=== PATIENT | male | born 1950 | race Caucasian/White ===

== ENCOUNTER → 2023-03-03 14:10 | Outpatient (BNVA) | payer OTHER, SELFPAY | PROVIDERS: Visit Provider Urology ==

== ENCOUNTER 2023-05-01 14:31 | Outpatient (REF) | payer OTHER, SELFPAY ==
--- NOTE | ~2023-05-01 | XR_ITS ---
EXAMINATION: XR cervical spine 4V CLINICAL INFORMATION: Dizziness COMPARISON: Cervical spine radiographs 03/06/2008 TECHNIQUE: 5 views of the cervical spine were obtained. FINDINGS: The cervical spine is visualized to the level of C6-C7 on the lateral view. Loss of the usual cervical spine lordosis which may be due to positioning or muscle spasm. No instability on flexion extension views. Status post C5-C7 discectomy and anterior spinal fusion. No hardware fracture or complication. There is osseous fusion across the vertebral bodies at the fused levels Vertebral body heights are otherwise maintained. Mild degenerative disc disease at C3-C4 and C4-C5, manifested by disc space height with multilevel moderate facet arthropathy.. No prevertebral soft tissue swelling. XR/XR cervical spine 4V IMPRESSION: 1. Status post C5-C7 discectomy and anterior spinal fusion. No hardware failure or complication. There is osseous fusion across the vertebral bodies at the fused levels. 2. Mild spondylosis of the cervical spine, as above detailed. 3. Loss of usual cervical spine lordosis which may be due to positioning or muscle spasm.
== END 2023-05-01 14:32 | disposition home or self-care (01) ==
LOC: HO.HOSX 14:31
PROVIDERS: Visit Provider Physician Assistant
DX: R42 Dizziness and giddiness (principal); R20.0 Anesthesia of skin; R51.9 Headache, unspecified
CPT/HCPCS: 72050

== ENCOUNTER 2023-05-22 15:19 | Outpatient (AMB) | payer OTHER, SELFPAY ==
--- NOTE | 2023-05-22 16:08 | A.SPINEOV_ITS ---
Intake Intake Visit Reasons: 3 weeks f/up Intake Note: Mr. Mark is here today for his 3 wk f/u. Allergies codeine [Codeine] Allergy (Mild, Verified 03/03/23 14:27) UNKNOWN oxycodone [Oxycodone] Adverse Reaction (Mild, Verified 03/03/23 14:27) INCREASED SYMPTOMS, WORSE PAIN Assessment & Plan Assessment & Plan (1) Dizziness: Code(s): R42 - Dizziness and giddiness Plan Mr Mark is here to see us today to discuss his MRA/MRI results in the setting of dizziness. As listed in my previous note, he had a previous anterior cervical fusion done for myelopathy years ago. He was in a dentist chair and after having some work done noticed dizziness which was affected by head position. He ultimately underwent a cervical MRI showing stenosis at C4-5 which was the reason he was sent to us. Although he has some baseline myelopathic physical exam findings, he has absolutely no complaints of cervical myelopathy symptoms in the sense that he does not have new tingling numbness weakness issues that have changed since he was starting with this dizziness. His MRI/MRA today shows no significant stenosis or intracranial findings that would explain his dizziness. His left vertebral artery was incompletely visualized either due to artifact or possibly narrowing so the radiologist recommended a CTA of the neck to evaluate this. I will order this test to be thorough in make sure we are not missing something as this could explain dizziness if that area is blocked. In the end, I do not think were dealing with a myelopathy here, however I will review his images with Dr. Chino and get back to the patient after the CTA is completed. Total amount of time spent in this visit was 20 minutes in discussion of symptoms, head and neck MRA imaging results and subsequent plan of care Tomy Chino MD,PhD [facility] Coding Level of Care Code Est Pt Level 3 (76704) Diagnoses Dizziness R42
== END 2023-05-22 16:35 | disposition home or self-care (01) ==
PROVIDERS: PCP Internal Medicine; Visit Provider Physician Assistant
DX: R42 Dizziness and giddiness (principal)
CPT/HCPCS: 99213

== ENCOUNTER → 2023-05-22 15:19 | Outpatient (BNVA) | payer OTHER, SELFPAY | PROVIDERS: PCP Internal Medicine; Visit Provider Physician Assistant ==

== ENCOUNTER 2025-07-25 14:56 | Outpatient (AMB) | payer MEDICARE, SELFPAY ==
--- NOTE | 2025-07-25 14:55 | A.OFFVIS_ITS ---
Intake Visit Reasons: Lump in Testicle (seen 2022) Intake Note: Patient is present for lump in testicle last seen 2022 Antibiotic Allergy: None Blood Thinner: None Book Sewing Machine Operator Required: No Accompanied by: Self / Same As Patient Allergies codeine (Codeine) Allergy (Mild, Verified 07/25/25 14:56) UNKNOWN oxycodone (Oxycodone) Adverse Reaction (Mild, Verified 07/25/25 14:56) INCREASED SYMPTOMS, WORSE PAIN HPI Comments Details: Micha is a very pleasant male. 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 Would like to be followed up in 12 month Epididymitis Longstanding Thinks it was related to post trauma when had been in hospital with ventilator in ICU and Jhaveri catheter in place a number of years ago Initially had presented with thickening on left cord Orchiectomy performed by [facility]rology [facility] Imaging - 12/18 thickening of right cord and epididymal head [facility] Surgical History (Updated 03/03/23 @ 14:35 by Nicky Kimball Hernán) History of removal of testicle Review of Systems Const Denies chills and Denies fever(s) Card Reports no additional complaints and Denies syncope Resp Denies cough GI Denies abdominal pain and Denies heartburn Reports as per HPI and Denies change in libido Neuro Denies syncope Psych Denies change in libido Endo Denies change in libido Physical Exam Const General: cooperative, healthy appearing, comfortable and no acute distress Orientation/consciousness: patient oriented x3 HEENT Face and sinus: Yes normal facial exam Mouth: moist mucous membranes Neck Neck: Yes normal visual inspection, Yes full ROM and Yes trachea midline Chest Chest palpation & inspection: normal inspection of the chest Resp Effort & Inspection: normal respiratory effort, able to speak in complete sentences and no respiratory distress GI Inspection: Yes normal to inspection Back/Spine/Pelvis Cervical Spine: normal cervical lordosis Thoracic/Lumbar Spine: thoracic and lumbar spine normal to inspection Skin General skin exam: no rashes or lesions noted Neuro General: patient oriented x3, gait normal, tone normal and moves all extremities Extrem General: Yes normal to inspection and Yes capillary refill normal Assessment & Plan Assessment & Plan (1) Epididymal thickening: Code(s): N50.89 - Other specified disorders of the male genital organs Category: Medical Plan Twelve month follow up Patient Instructions: This note is constructed using voice recognition software. While every effort has been made to ensure accuracy piano machine operator errors may have been included. Imaging studies, laboratory and physical exam results were discussed and reviewed in detail. No major barriers to patient understanding were identified. An opportunity to ask questions regarding the treatment plan was provided. All questions were answered. The patient expressed understanding and agreement with the above treatment plan. The patient is aware they should contact our office by phone for worsening of their current condition or the appearance of new urologic symptoms. Compliance is encouraged with any medications and followup testing that is ordered. It is a privilege to participate in the urologic care of your patient. If you have any questions or concerns regarding treatment for the above conditions, or other urologic issues, please do not hesitate to contact me. The office telephone contact is [phone]. Sincerely, Dr Solitario Pink MD, [facility] - Urology Compassionate Specialist Care for the Genitourinary System Coding Level of Care Code Est Pt Level 4 (72979) Diagnoses Epididymal thickening N50.89
--- OUTSIDE RECORDS SUMMARY | 2025-07-25 16:15 | XMS_ITS | Encounter Summary ---
Author Organization [facility] Address [address] [facility] [address] [place] [address] Phone Care Team Providers Care Photo Journalist Name Role Phone Johnie Loaiza MD Unavailable Yoli Aragon MD Primary Care Provider Encounter Details Date Type Department Care Team (Late st Contact Info) Description 04/16/2022 Procedure Pass [facility], [address] [place] [address] Social History Tobacco Use Types Packs/Day Years Used Date Smoking Tobacco: Never Smokeless Tobacco: Never Sex and Gender Information Value Date Recorded Sex Assigned at Male 05/17/2018 11:34 AM EDT Legal Sex Male 10:05 PM EDT Gender Identity Male 05/17/2018 11:34 AM EDT Sexual Orientation Straight 05/17/2018 11 :34 AM EDT documented as of this encounter Plan of Treatment Not on file documented as of this encounter Visit Diagnoses Not on filedocumented in this encounter Additional Health Concerns Infection Onset Date Last Indicated Resolved Time CoV-Exposed Comment:Positive COVID-19 06/13/2024 06/13/2024 06/13/2024 4:1 9 PM EDT CoV-Risk Comment:Per Ambulatory Triage Form 06/13/2024 06/13/202406/13 4:19 PM EDT COVID-19 06/13/2024 06/13/2024 07/04/2024 1:21 AM EDT Assessment Noted Time PHQ-2 Depression Total Score: 0 12/23/20 19 3:39 PM EST documented as of this encounter Care Teams Photo Journalist Relationship Specialty Start Date End Date Yoli Aragon MD [address] [place] [address], 2[address] [place] [address] [email or web address] PCP - General Internal Medicine 05/22/20 Johnie Loaiza MD [address] [place] [address] [place] [address] [email or web address] Historical LMR Provider 08/12/17 documented as of this encounter Additional Source Comments The information contained in this document represents components of the legal health record. It is not the complete legal health record.[facility]
--- OUTSIDE RECORDS SUMMARY | 2025-07-25 16:15 | XMS_ITS | Encounter Summary ---
Author Organization [facility] Address [address] [facility] [address] [place] [address] Phone Care Team Providers Care Blackjack Supervisor Name Role Phone Nba Sheppard MD Unavailable + Johnie Loaiza MD Unavailable [phone] Damaris Avery MD Unavailable Yoli Aragon MD Primary Care Provider Encounter Details Date Type Department Care Team (Late st Contact Info) Description 02/04/2021 Procedure Pass [facility] [address] [place] [address] Social History Tobacco Use Types Packs/Day Years [...] Noted Time PHQ-2 Depression Total Score: 0 10/17/20 3:39 PM EST documented as of this encounter Care Teams Blackjack Supervisor Relationship Specialty Start Date End Date Yoli Aragon MD [address] [place] [address], [address] [place] [address] PCP - General Internal Medicine 05/22/20 Nba Sheppard MD [address] [place] [address] [email or web address] Historical LMR Provider 08/12/17 11/02/21 Johnie Loaiza MD [address] [place] [address] 2[address] [place] [address] [email or web address] Historical LMR Provider 08/12/17 Damaris Avery MD [address] [place] [address] [facility] Medicine, [place] [address] Historical LMR Provider 08/12/17 documented as of this encounter Additional Source Comments The information contained in this document represents components of the legal health record. It is not the complete legal health record.[facility]
--- OUTSIDE RECORDS SUMMARY | 2025-07-25 16:15 | XMS_ITS | Encounter Summary ---
Author Organization [facility] Address [address] [facility] [address] [place] [phone] Phone Care Team Providers Care Property Controller Name Role Phone Johnie Loaiza MD Unavailable Yoli Aragon MD Primary Care Provider Encounter Details Date Type Department Care Team (Late st Contact Info) Description 11/06/2021 Procedure Pass [facility] [address] [place] [address] Social History Tobacco Use Types Packs/Day Years [...] documented as of this encounter Care Teams Property Controller Relationship Specialty Start Date End Date Yoli Aragon MD [address] [place] [address], [address] [place] [address] [email or web address] PCP - General Internal Medicine 05/22/20 Johnie Loaiza MD [address] [place], [place] [address] [address] [email or web address] Historical LMR Provider 08/12/17 documented as of this encounter Additional Source Comments The information contained in this document represents components of the legal health record. It is not the complete legal health record.[facility]
--- OUTSIDE RECORDS SUMMARY | 2025-07-25 16:15 | XMS_ITS | Encounter Summary ---
Author Organization [facility] Address [address] [facility] [address] [place] [address] Phone Care Team Providers Care Physician Non Invasive Cardiologist Name Role Phone Johnie Loaiza MD Unavailable [phone] Yoli Aragon MD Primary Care Provider [phone] Encounter Details Date Type Department Care Team (Late st Contact Info) Description 05/04/2023 Procedure Pass [facility], [address] [place] [address] Social History Tobacco Use Types Packs/Day Years Used Date Smoking Tobacco: Never Smokeless Tobacco: Never Alcohol Use Standard Drinks/Week Comments Not Currently 0 (1 standard drink = 0.6 oz pur e alcohol) Education Answer Date Recorded Are you interested in more education? Not on homer e 02/20/2023 Are you concerned about learning? Not on file 02/20/2023 No 02/20/2023 No 02/20/2023 Digital Access Answer Date Recorded No 03/17/2023 No 03/17/2023 Reliable internet access at home? Not on file 03/17/2023 Device with a working camera? Not on file Sex and Gender Information Value Date Recorded [...] Assessment Noted Time PHQ-2 Depression Total Score: 1 05/08/20 23 2:25 PM EDT documented as of this encounter Care Teams Physician Non Invasive Cardiologist Relationship Specialty Start Date End Date Yoli Aragon MD [address] [place] [address], [address] [place] [address] [email or web address] PCP - General Internal Medicine 05/22/20 Johnie Loaiza MD [address] [place] [address] [address] [place] [address] [email or web address] Historical LMR Provider 08/12/17 documented as of this encounter Additional Source Comments The information contained in this document represents components of the legal health record. It is not the complete legal health record.[facility]
--- OUTSIDE RECORDS SUMMARY | 2025-07-25 16:15 | XMS_ITS | Encounter Summary ---
Author Organization [facility] Address [address] [place] [address] Phone Care Team Providers Care Wireless Engineer Name Role Phone Johnie Loaiza MD Unavailable [phone] Yoli Aragon MD Primary Care Provider [phone] Reason for Referral * MRI/CAT Scan - Closed Specialty Diagnoses / Procedures Referred By Carlo marc Referred To Contact Radiology Diagnoses Dizziness and giddiness Procedures CT Angio Neck CT ANGIO HEAD CHG CT ANGIO,NECK COMBO,INCL IMAGE PROCESS Tomy Carlos PA [address] [facility] [address] [place] [address] Phone: tel: fax: Referral ID Status Reason Start Date Expiration Date Visits Re quested Visits Authorized [id number] Closed 06/25/2023 07/25/2023 1 1 * MRI/CAT Scan - Closed Specialty Diagnoses / Procedures Referred By Carlo marc Referred To Contact Radiology Diagnoses Dizziness and giddiness Procedures CT Angio Head CHG CT ANGIO,HEAD COMBO,INCL IMAGE PROCESS Tomy Carlos PA [address] [facility] [address] [place] [address] Phone: tel: fax: Referral ID Status Reason Start Date Expiration Date Visits Re quested Visits Authorized [id number] Closed 06/30/2023 08/29/2023 1 1 Encounter Details Date Type Department Care Team (Late st Contact Info) Description 05/26/2023 Transcribe Orders Virtual Department [address] [place] [address] Tomy Carlos PA [address] [place] [id number] Dizziness and giddiness (Primary Dx) Social History Tobacco Use Types Packs/Day Years [...] on file documented as of this encounter Results * CT ANGIO NECK WITH CONTRAST (07/09/2023 12:51 PM EDT) Anatomical Region Laterality Modality Neck Computed Tomogra phy 07/14/2023 10:1 2 AM EDT Impressions 07/14/2023 10:30 AM EDT 1. Extremely attenuated distal portion of the nondominant left vertebral artery. Cannot confirm patent communication with the basilar artery on this study. No evidence of significant carotid or dominant right vertebral artery stenoses. CAROTID STENOSIS REFERENCE: -Distal internal carotid artery diameter as the denominator for stenosis measurement: MILD = <50% stenosis. MODERATE = 50-69% stenosis. SEVERE = 70-89% stenosis. HAIRLINE/CRITICAL = 90-99% stenosis. OCCLUDED = 100% stenosis. Narrative 07/14/2023 10:[address] ANGIO NECK WITH CONTRAST History: Dizziness and giddiness, prior abnormal MRA TECHNIQUE: Multidetector-row CTA of the neck was performed after administration of intravenous contrast using tailored dose modulation techniques. Images were reconstructed in the axial, coronal, and sagittal planes, including 3D angiographic image post-processing. COMPARISON: 05/19/2023 MRA of neck FINDINGS: CTA NECK: Aortic Arch and Origin of Major Cervical Vessels: There is a left-sided, three- vessel aortic arch. The brachiocephalic artery and bilateral subclavian arteries are patent. Right Common Carotid Artery: No stenosis, occlusion or dissection. Right Internal Carotid Artery: No stenosis, occlusion or dissection. Left Common Carotid Artery: No stenosis, occlusion or dissection. Left Internal Carotid Artery: No stenosis, occlusion or dissection. External Carotid Arteries: No stenosis, occlusion or dissection. Right Vertebral Artery: No stenosis, occlusion or dissection. Left Vertebral Artery: Nondominant and uniformly narrowed throughout its course to the level of the C1 ring where it appears patent at the level of the dural penetration but attenuates upon entry into the foramen magnum where the lumen cannot be clearly traced to the basilar artery, although there are a few small collaterals seen in this region. Venous Structures: No evidence of jugular vein thrombosis. NON-VASCULAR FINDINGS Thyroid: Heterogeneous. Lines/tubes: None. Lungs and Airways: Visualized lung apices clear. Soft Tissues: Normal. No adenopathy. Bones: Postsurgical changes in the lower cervical spine. No acute traumatic or destructive skeletal lesion apparent. Procedure Note Sigifredo Fang MD - 07/14/2023 CT ANGIO NECK WITH CONTRAST History: Dizziness and giddiness, prior abnormal MRA TECHNIQUE: Multidetector-row CTA of the neck was performed afteradministration of intravenous contrast using tailored dose modulationtechniques. Images were reconstructed in the axial, coronal, and sagittalplanes, including 3D angiographic image post-processing. COMPARISON: 05/19/2023 MRA of neck FINDINGS: CTA NECK: Aortic Arch and Origin of Major Cervical Vessels: There is a left-sided,three-vessel aortic arch. The brachiocephalic artery and bilateralsubclavian arteries are patent. Right Common Carotid Artery: No stenosis, occlusion or dissection. Right Internal Carotid Artery: No stenosis, occlusion or dissection. Left Common Carotid Artery: No stenosis, occlusion or dissection. Left Internal Carotid Artery: No stenosis, occlusion or dissection. External Carotid Arteries: No stenosis, occlusion or dissection. Right Vertebral Artery: No stenosis, occlusion or dissection. Left Vertebral Artery: Nondominant and uniformly narrowed throughout itscourse to the level of the C1 ring where it appears patent at the level ofthe dural penetration but attenuates upon entry into the foramen magnumwhere the lumen cannot be clearly traced to the basilar artery, althoughthere are a few small collaterals seen in this region. Venous Structures: No evidence of jugular vein thrombosis. NON-VASCULAR FINDINGS Thyroid: Heterogeneous. Lines/tubes: None. Lungs and Airways: Visualized lung apices clear. Soft Tissues: Normal. No adenopathy. Bones: Postsurgical changes in the lower cervical spine. No acutetraumatic or destructive skeletal lesion apparent. IMPRESSION: 1. Extremely attenuated distal portion of the nondominant left vertebralartery. Cannot confirm patent communication with the basilar artery onthis study. No evidence of significant carotid or dominant right vertebralartery stenoses. CAROTID STENOSIS REFERENCE: -Distal internal carotid artery diameter as the denominator for stenosismeasurement: MILD = <50% stenosis. MODERATE = 50-69% stenosis. SEVERE = 70-89% stenosis. HAIRLINE/CRITICAL = 90-99% stenosis. OCCLUDED = 100% stenosis. us Tomy [place] CT HEAD/NECK Final Resu lt * CT ANGIO HEAD WITH AND WITHOUT CONTRAST (07/09/2023 12:51 PM EDT) Anatomical Region Laterality Modality Neck Computed Tomogra phy 07/14/2023 10:3 0 AM EDT Impressions 07/14/2023 10:39 AM EDT 1. No acute intracranial parenchymal pathology, aneurysm, or stenosis of the major arterial structures apparent. Narrative 07/14/2023 10:[address] ANGIO HEAD WITH AND WITHOUT CONTRAST History: Dizziness and giddiness TECHNIQUE: Multidetector-row CTA of the head was performed before and after administration of intravenous contrast using tailored dose modulation techniques. Images were reconstructed in the axial, coronal, and sagittal planes, including angiographic image post-processing. 3D angiographic images with reformatting and post- processing reconstructions were performed and interpreted. COMPARISON: MRI/MRA of brain 05/19/2023 FINDINGS: HEAD CT: Brain Parenchyma: No evidence of acute intracranial hemorrhage or transcortical infarct. Minimal patchy hypodensity in the periventricular white matter. No focus of abnormal contrast enhancement. Ventricular System and Extra-Axial Spaces: Ventricles and cerebral sulci remain within normal limits in size. 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 No pathologic extra-axial fluid collections. Osseous and Extracranial Structures: No acute bony abnormality. Visualized paranasal sinuses and mastoid air cells are overall clear. CTA HEAD: Anterior Circulation: Chronic hypoplastic right A1 segment. Intracranial internal carotid arteries, middle cerebral arteries, and anterior communicating artery appear patent. No acute aneurysm or AVM. Posterior Circulation: No aneurysm, arteriovenous malformation or thrombosis. The intracranial vertebral arteries and the basilar are patent. The posterior cerebral arteries are patent bilaterally. Posterior communicating arteries are present bilaterally. Venous Structures: No thrombosis. Procedure Note Sigifredo Fang MD - 07/14/2023 CT ANGIO HEAD WITH AND WITHOUT CONTRAST History: Dizziness and giddiness TECHNIQUE: Multidetector-row CTA of the head was performed before and afteradministration of intravenous contrast using tailored dose modulationtechniques. Images were reconstructed in the axial, coronal, and sagittalplanes, including angiographic image post-processing. 3D angiographicimages with reformatting and post-processing reconstructions wereperformed and interpreted. COMPARISON: MRI/MRA of brain 05/19/2023 FINDINGS: HEAD CT: Brain Parenchyma: No evidence of acute intracranial hemorrhage ortranscortical infarct. Minimal patchy hypodensity in the periventricularwhite matter. No focus of abnormal contrast enhancement. Ventricular System and Extra-Axial Spaces: Ventricles and cerebral sulciremain within normal limits in size. Stable asymmetric cisterna magnaversus right paramedian arachnoid cyst. No pathologic extra-axial fluidcollections. Osseous and Extracranial Structures: No acute bony abnormality. Visualizedparanasal sinuses and mastoid air cells are overall clear. CTA HEAD: Anterior Circulation: Chronic hypoplastic right A1 segment. Intracranialinternal carotid arteries, middle cerebral arteries, and anteriorcommunicating artery appear patent. No acute aneurysm or AVM. Posterior Circulation: No aneurysm, arteriovenous malformation orthrombosis. The intracranial vertebral arteries and the basilar arepatent. The posterior cerebral arteries are patent bilaterally. Posteriorcommunicating arteries are present bilaterally. Venous Structures: No thrombosis. IMPRESSION: 1. No acute intracranial parenchymal pathology, aneurysm, or stenosis ofthe major arterial structures apparent. Tomy ANAND IMG CT HEAD/NECK Final Resu lt documented in this encounter Visit Diagnoses Diagnosis Dizziness and giddiness- Primary Dizziness and giddiness documented in this encounter Additional Health Concerns Infection Onset Date Last Indicated Resolved Time CoV-Exposed Comment:Positive COVID-19 06/13/2024 06/13/2024 06/13/2024 4:1 9 PM EDT CoV-Risk Comment:Per Ambulatory Triage Form 06/13/2024 06/13/202406/13 4:19 PM EDT COVID-19 06/13/2024 06/13/2024 07/04/2024 1:21 AM EDT Assessment Noted Time PHQ-2 Depression Total Score: 1 05/08/20 23 2:25 PM EDT documented as of this encounter Care Teams Wireless Engineer Relationship Specialty Start Date End Date Yoli Aragon MD [address] [place] [address], [address] [place] [address] [email or web address] PCP - General Internal Medicine 05/22/20 Johnie Loaiza MD [address] [place] [address] [address] [place] [address] [email or web address] Historical LMR Provider 08/12/17 documented as of this encounter Additional Source Comments The information contained in this document represents components of the legal health record. It is not the complete legal health record.[facility]
--- OUTSIDE RECORDS SUMMARY | 2025-07-25 16:15 | XMS_ITS | Encounter Summary ---
Author Organization [facility] Address [address] [facility] [address] [place] [address] Phone Care Team Providers Care Practice Support Specialist Name Role Phone Johnie Loaiza MD Unavailable [phone] Yoli Aragon MD Primary Care Provider [phone] Encounter Details Date Type Department Care Team (Late st Contact Info) Description 05/26/2023 Procedure Pass [facility], Ct Scan - [facility] [address] [place] [address] Social History Tobacco Use Types Packs/Day Years [...] documented as of this encounter Care Teams Practice Support Specialist Relationship Specialty Start Date End Date Yoli Aragon MD [address] [place] [address], [address] [place] [address] [email or web address] PCP - General Internal Medicine 05/22/20 Johnie Loaiza MD [address] [place] [address] [address] [place] [address] [email or web address] Historical LMR Provider 08/12/17 documented as of this encounter Additional Source Comments The information contained in this document represents components of the legal health record. It is not the complete legal health record.[facility]
--- OUTSIDE RECORDS SUMMARY | 2025-07-25 16:15 | XMS_ITS | Encounter Summary ---
Author Organization [facility] Address [address] [facility] [address] [place] [address] Phone Care Team Providers Care Electronic Operator Name Role Phone Johnie Loaiza MD Unavailable [phone] Yoli Aragon MD Primary Care Provider [phone] Encounter Details Date Type Department Care Team (Late st Contact Info) Description 05/26/2023 Procedure Pass [facility], Ct Scan - [facility] [address] [place] [address] Social History Tobacco Use Types Packs/Day Years [...] documented as of this encounter Care Teams Electronic Operator Relationship Specialty Start Date End Date Yoli Aragon MD [address] [place] [address], [address] [place] [address] [email or web address] PCP - General Internal Medicine 05/22/20 Johnie Loaiza MD [address] [place] [address] [address] [place] [address] [email or web address] Historical LMR Provider 08/12/17 documented as of this encounter Additional Source Comments The information contained in this document represents components of the legal health record. It is not the complete legal health record.[facility]
--- OUTSIDE RECORDS SUMMARY | 2025-07-25 16:15 | XMS_ITS | Clinical Summary ---
Author Organization [facility] Address [address] [place] [id number] Phone Care Team Providers Care Consulting Solution Manager Name Role Phone Johnie Loaiza MD Unavailable [phone] Yoli Aragon MD Primary Care Provider Allergies Active Allergy Reactions Criticality Noted Date Comments Codeine 05/12/2018 Tetanus Vaccines And Toxoid 05/08/20 23 Left frozen shoulder Medications cholecalciferol, vitamin D3, 25 mcg (1,000 unit) chewable tablet Take 10 mcg by mouth. 03/05/2023 Active ascorbic acid, vitamin C, (VITAMIN C) 250 mg Chew Take 1 tablet by mouth daily. Active cyanocobalamin, vitamin B-12, 100 MCG tablet Take 1 tablet by mouth daily. Active multivitamin stress B with zinc (SURBEX 750 WITH ZINC TABLET) Tab Take 1 tablet by mouth daily. 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 He does not have any open wounds or discomfort per say. Echo in December showed normal systolic and diastolic function, so not surprised that Lasix did not help his edema. I advised him that the only way to assess for any arterial or venous involvement in any of his (fairly atypical) symptoms are to perform arterial and venous duplex studies. He would prefer to defer this for now as his symptoms are not overly bothersome to him. Assessment & Plan (02/18/2022 3:57 PM EDT): He appears euvolemic on exam today and does not appear to be in heart failure. His a little bilateral lower extremity edema that comes on at night with reddening of his feet and a burning sensation improved in the morning. He has been unable to tolerate compression stockings in the past due to the discomfort it causes him when he wears them. He is also tried Lasix from his PCP but this did not help his edema. I did offer him to have a venous study to see if he had venous insufficiencies but he would like to hold off on this for now. He does want to try herbal medication that he has read a study on that helped his edema and he would like to try this first. He will continue to check his blood pressures at home as he was borderline hypertension here in the office in addition to his reaction to the herbal medication that he would like to try for his edema. Otherwise he will follow-up in 6 months. If he develops worsening symptoms or his blood pressure does not improve I have asked him to come back in sooner. Assessment & Plan (11/06/2021 2:30 PM EST): I noted that his leg edema could be due to venous stasis or could be due to heart failure. We will plan again echocardiogram. He appears euvolemic currently and has been taking Lasix as needed but has not needed it recently. I asked him to keep a pillow under his legs to prevent fluid from draining to his legs and see if this also helps prevent this from recurring Palpitations 11/06/2021 Assessment & Plan (08/20/2022 1:32 PM EDT): Not overly problematic at present time. Occasional PACs and PVCs noted on MCT earlier this year, nothing requiring medication. Assessment & Plan (02/18/2022 3:56 PM EDT): 11/14/2021 30-day Holter monitor showed predominant rhythm was sinus rhythm with a minimum heart rate 44 bpm, maximum heart rate 111 bpm with an average heart rate 60 bpm. Occasional premature atrial and premature ventricular complexes. 1 atrial run up to 45 beats to a heart rate of 120 bpm. 01/10/2022 echocardiogram shows a normal ejection fraction 60 to 65%. No evidence of wall motion abnormalities. No aortic stenosis or regurgitation. There is mild mitral regurgitation. Compared to prior to the prior report on 03/05/2021, no significant change. He states that he has improvement in his palpitations due to stress reduction. His whole 30-day Holter monitor did not reveal anything that would indicate needing to start medication. He will continue to meditate and reduce his stress. Assessment & Plan (11/06/2021 2:31 PM EST): He does have rare palpitations and in the hospital had PACs that were seen. We will plan on doing a loop monitor to document his burden of PACs and see what rhythm he is in when he has palpitations Lumbar radiculopathy 05/09/2021 Skin lesion 03/28/2020 Assessment & Plan (03/29/2020 9:07 AM EDT): Skin lesion RUQ abd appears to be irritated alberto ker by ZOOM but limited and pt interested in removal which can be scheduled for me per pt as declined derm referral Pain of right hip joint 03/28/2020 Assessment & Plan (03/29/2020 9:08 AM EDT): Pt w R hip pain w Neg xrays for djd but shows some tendonitis and discussed possible inj as some of sx do coincide w troch bursitis Chronic midline low back pain 03/28/2020 Assessment & Plan (08/26/2024 11:06 PM EDT): He continues to have difficulty with his balance. He manages with trekking poles and is trying photomodulation. 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 Noted that some minority of patients who have bifascicular block to go on to have complete heart block but the majority do not. We will plan on doing the monitor to confirm he is not having complete heart block when he is lightheaded. I told him that if he ever has lightheadedness or dizziness that prevents him from being able to walk or does not stop within a few seconds, he should go to the ED or call 9 Assessment & Plan (09/20/2018 9:52 PM EST): Patient with long-standing right bundle branch block states happened many years ago is noted again at this colonoscopy this year was notified by the nurse reassured patient is nothing to worry about as far as right bundle Groin pain, chronic, left 09/20/2018 Assessment & Plan (03/29/2020 9:05 AM EDT): Chr recurring pain w neg surg eval for hernia and discussed possible urology ref ? Chr epididymitis He willcall for referral if desired. Doesn't appear to be orthopedic Assessment & Plan (10/18/2019 9:10 AM EST): + long time for muscle pull ? 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 No hint apnea or anemai or thyroid but ? Element dysthymia declines referral or med trial Assessment & Plan (09/20/2018 9:51 PM EST): Admits coulld be stress leading to ysthymia also low testosterone declines restarting hormones Other constipation 05/26/2018 Assessment & Plan (09/20/2018 9:51 PM EST): Patient with constipation with recent colonoscopy was essentially normal. Did discuss different treatment options he has some herbal ones that he has been using with good effect. Assessment & Plan (06/01/2018 11:35 PM EDT): Patient with recent constipation unsure why may be from decreased activity said regular colonoscopies follow-up with Dr. Hills if no improvement. Did recommend continued stool softener and MiraLAX as tolerated. Nothing to suggest malignancy is workup including x-ray and labs are normal in the emergency room Lower abdominal pain 05/26/2018 Assessment & Plan (06/01/2018 11:36 PM EDT): Lower abdominal pain does not appear to be diverticular nor bladder. Does not have a psoas sign or pain on straight leg raise against resistance still this could be a muscular pain. Suggest this being shingles no hypersensitivity does not appear to be dermatomal Resolved Problems Problem Noted Date Diagnosed Date Resolved Date Groin pain, right 09/20/2018 09/20/2018 Immunizations Immunization Administration Dates Next Due COVID-19 (Pre-08/17) Rebecca Vaccine, [id number], PF 12/29/2020 Influenza High-Dose Quadriva lent Preservative Free IM 10/06/2022 Influenza High-Dose Trivalen t Preservative Free IM 08/24/2024,08/23/2018 Influenza Quadrivalent Preservative Free IM /12/2023,10/04/2019 Influenza, whole 09/21/2015 Zoster recombinant 08/22/2022,08/14/2022, 022 Family History Medical History Relation Comments Pacemaker Father Abnormal EKG Mother Relation Status Comments Father Mother Alive Social History Tobacco Use Types Packs/Day Years Used Date Smoking Tobacco: Never Smokeless Tobacco: Never Tobacco Cessation:Counseling Given: Not Answered Alcohol Use Standard Drinks/Week Comments Not Currently [...] with a working camera? Not on file Intimate Partner Violence Answer Date R ecorded Denied Basic Needs Not on file 08/20/2024 In the past 12 months have y ou been in a relationship with a person who hurts, threatens, or tries to control you? No 08/20/2024 Worried food would run out Not on file 08/20 In the past 12 months have y ou been in a relationship with a person who hurts, threatens, or tries to control you? No 08/20/2024 Sex and Gender Information Value Date Recorded Sex Assigned at Male 05/17/2018 11:34 AM EDT Legal Sex Male 10:05 PM EDT Gender Identity Male 05/17/2018 11:34 AM EDT Sexual Orientation Straight 05/17/2018 11 :34 AM EDT Last Filed Vital Signs Vital Sign Reading Time Taken Comments Blood Pressure 112/60 08/24/2024 4:02 PM EDT Pulse 59 08/24/2024 4:02 PM EDT Temperature 36.1 C (96.9 F) 08/24/2024 4:02 PM EDT Respiratory Rate 16 05/17/2018 2:21 PM EDT Oxygen Saturation 98% 08/24/2024 4:02 PM EDT Inhaled Oxygen Concentration - - Weight 72.3 kg (159 lb 6.4 oz) 08/24/2024 4:02 P M EDT Height 172.3 cm (5' 7.84 ) 08/24/2024 4:02 PM ED T Body Mass Index 24.35 08/24/2024 4:02 PM EDT Plan of Treatment Health Maintenance Due Date Last Done Comments HEPATITIS C SCREENING 1966 PNEUMOCOCCAL VACCINES (50+ years) (1 of 1 - PCV) 1998 RSV VACCINE (1 - 1-dose 75+ series) 2023 LIPID PANEL 11/15/2024 11/15/2019, 09/19/2013 INFLUENZA VACCINE (#1) 2025 , 10/28/2023, 10/06/2022, Additional history exists COVID-19 VACCINE ( season) 2025 09/20/2024, 10/28/2023, 10/06/2022, Additional history exists DEPRESSION SCREENING 08/20/2025 08/20/2024 ZOSTER VACCINES Completed 08/22/2022, 07/27, 04/11/2022 SMOKING STATUS SCREENING (Once After 26 Yrs) Completed 08/24/2024 HEPATITIS A VACCINES Aged Out No long er eligible based on patient's age to complete this topic HIB VACCINES Aged Out No longer eligi ble based on patient's age to complete this topic MENINGOCOCCAL VACCINES (ACWY) Aged Out No longer eligible based on patient's age to complete this topic MENINGOCOCCAL VACCINES (B) Aged Out N o longer eligible based on patient's age to complete this topic Medical Devices Not on file Procedures Procedure Name Priority Date/Time Associated Diagnosis Comments LIPID PANEL Routine 11/15/2019 8:43 AM EST Malaise and fatigue from Last 3 Months or Most Recently Relevant to Health Maintenance Results * (ABNORMAL) Lipid panel (11/15/2019 8:43 AM EST) HDL 35 mg/dL [facility] Comment: Interpretation <40 mg/dL: Low HDL cholesterol (major risk factor for CHD) Greater than or equal to 60 mg/dL: High HDL cholesterol ( negative risk factor for CHD) HDL - cholesterol is affected by a number of factors, e.g. smoking, excerise, hormones, sex and age. CHOLESTEROL 177 0 - 240 mg/dL [facility] TRIGLYCERIDES 174(H) 30 - 160 mg/dL [facility] LDL 107 50 - 129 mg/dL [facility] Comment: LDL levels in terms of risk for coronary heart disease: <100 mg/dL: Optimal 100-129 mg/dL: Near or above optimal 130-159 mg/dL: Borderline high 160-189 mg/dL: High >190 mg/dL: Very High CARDIAC RISK RATIO 5.1(H) 3.4 - 5.0 C [facility] Blood 11/15/2019 8:43 AM EST 11/15/2019 2:28 PM EST Johnie Loaiza MD LAB BLOOD ORDERABLES Fin al Result Performing Organization Address City/State/[facility] Co de Phone Number [facility] [address] [place] [address] from Last 3 Months or Most Recently Relevant to Health Maintenance Insurance [employer] HMO REPLACEMENT [facility] MEDICARE HMO REPLACEMENT [facility] MEDICARE HMO REPLACEMENT [facility] MEDICARE HMO REPLACEMENT [employer] [place]PLACEMENT [employer] RE[employer]ACEMENT Care Teams Consulting Solution Manager Relationship Specialty Start Date End Date Yoli Aragon MD [address] [place] [address], [address] [place] [address] [email or web address] PCP - General Internal Medicine 05/22/20 Johnie Loaiza MD [address] [place] [address] [address] [place] [address] [email or web address] Historical LMR Provider 08/12/17 Additional Source Comments The information contained in this document represents components of the legal health record. It is not the complete legal health record.[facility]
--- OUTSIDE RECORDS SUMMARY | 2025-07-25 16:15 | XMS_ITS | Encounter Summary ---
Author Organization [facility] Address [address] [place] [id number] Phone Care Team Providers Care Digital Account Manager Name Role Phone Johnie Loaiza MD Unavailable [phone] Yoli Aragon MD Primary Care Provider [phone] Reason for Referral * MRI/CAT Scan - Closed Specialty Diagnoses / Procedures Referred By Carlo marc Referred To Contact Radiology Diagnoses Nonintractable headache, unspecified chronicity pattern, unspecified headache type Dizziness Procedures MRI Angio Neck CHG MR ANGIO, NECK Tomy Carlos PA Phone: tel: fax: Referral ID Status Reason Start Date Expiration Date Visits Re quested Visits Authorized [id number] Closed 05/04/2023 06/03/2023 1 1 * MRI/CAT Scan - Closed Specialty Diagnoses / Procedures Referred By Carlo marc Referred To Contact Radiology Diagnoses Nonintractable headache, unspecified chronicity pattern, unspecified headache type Dizziness Procedures MRI Angio Brain CHG MR ANGIO, HEAD Tomy Carlos PA Phone: tel: fax: Referral ID Status Reason Start Date Expiration Date Visits Re quested Visits Authorized [id number] Closed 05/04/2023 06/03/2023 1 1 * MRI/CAT Scan - Closed Specialty Diagnoses / Procedures Referred By Carlo marc Referred To Contact Radiology Diagnoses Nonintractable headache, unspecified chronicity pattern, unspecified headache type Dizziness Procedures MRI Brain CHG MRI BRAIN Tomy Carlos PA Phone: tel: fax: Referral ID Status Reason Start Date Expiration Date Visits Re quested Visits Authorized [id number] Closed 05/04/2023 06/03/2023 1 1 Encounter Details Date Type Department Care Team (Latest Contact Info) Description 05/04/2023 Transcribe Orders Virtual Department [address] [place] [id number] Tomy Carlos PA [facility] [address] [place] [id number] Nonintractable headache, unspecified chronicity pattern, unspecified headache type (Primary Dx); Dizziness Social History Tobacco Use Types Packs/Day Years Used Date Smoking Tobacco: Never Smokeless Tobacco: Never Education Answer Date Recorded Are you interested [...] documented as of this encounter Results * MRI ANGIO NECK WITHOUT CONTRAST (05/19/2023 4:58 PM EDT) Anatomical Region Laterality Modality Neck Magnetic Resonan ce 05/19/2023 5:33 PM EDT Impressions 05/20/2023 7:05 AM EDT Non-dominant left vertebral artery, not well visualized along its intracranial portion or just proximal to the dural penetration, likely related to technical factors and. However, given complaint of dizziness, consider CTA head/neck to more definitively confirm patency Otherwise, no cause for the reported symptoms identified by brain MRI, head MRA, or neck MRA Multinodular thyroid gland, not well assessed on this examination. Consider thyroid ultrasound, if clinically appropriate. This report has been forwarded to an automated communication system which will electronically notify appropriate providers of potentially important findings. Narrative 05/20/2023 7:05 AM EDT MRI BRAIN WITHOUT CONTRAST, MRI ANGIO BRAIN WITHOUT CONTRAST, MRI ANGIO NECK WITHOUT CONTRAST TECHNIQUE: MRI BRAIN WITHOUT CONTRAST, MRI ANGIO BRAIN WITHOUT CONTRAST, MRI ANGIO NECK WITHOUT CONTRAST Multi-sequence, multi-planar MRI of the brain was performed without intravenous contrast. MRA of the head was performed utilizing mbsp-is-xqdxzu technique (no gadolinium). Maximal intensity projection 3D angiographic reformatted images were performed. MRA of the neck was performed utilizing zbls-lx-xbhzlb technique (no gadolinium). Maximal intensity projection 3D angiographic reformatted images were performed. COMPARISON: None FINDINGS: Brain Parenchyma: There is minimal scattered T2/FLAIR hyperintensity in the periventricular and deep white matter which is nonspecific and can be seen in the setting of chronic small vessel disease. No evidence of acute infarct, mass lesion, or hemorrhage. Ventricular System and Extra-Axial Spaces: Asymmetric prominence of the right retrocerebellar space, likely either an arachnoid cyst or asymmetric developmentally large cisterna magna. No evidence of midline shift or hydrocephalus. Extracranial Structures: Arterial flow voids in the skull base are present. MRA HEAD: Anterior Circulation: Hypoplastic right A1 segment, anatomic variant Normal flow within the intracranial internal carotid arteries, anterior cerebral arteries and the middle cerebral arteries. No severe stenosis, occlusion, aneurysm or arteriovenous malformation. Posterior Circulation: Intracranial left vertebral artery not visualized. Normal flow within the intracranial right vertebral artery, basilar artery and posterior cerebral arteries. No severe stenosis, occlusion, aneurysm or arteriovenous malformation. MRA NECK: Aortic Arch and Origin of Major Cervical Vessels: Normal. There is a left-sided, three-vessel aortic arch. The brachiocephalic artery and bilateral subclavian arteries are patent. Right Common Carotid Artery: Normal. No stenosis, occlusion or dissection. Right Internal Carotid Artery: Normal. No stenosis, occlusion or dissection. Left Common Carotid Artery: Normal. No stenosis, occlusion or dissection. Left Internal Carotid Artery: Normal. No stenosis, occlusion or dissection. External Carotid Arteries: Normal. No stenosis, occlusion or dissection. Right Vertebral Artery: Normal. No stenosis, occlusion or dissection. Left Vertebral Artery: Nondominant left vertebral artery, suboptimally evaluated along its proximal segment due to artifact, and not well visualized just proximal to the dural penetration. Other: Multinodular thyroid gland, not well assessed on this examination. Cervical spine hardware CAROTID STENOSIS REFERENCE: -Distal internal carotid artery diameter as the denominator for stenosis measurement: MILD = <50% stenosis. MODERATE = 50-69% stenosis. SEVERE = 70-89% stenosis. HAIRLINE/CRITICAL = 90-99% stenosis. OCCLUDED = 100% stenosis. Procedure Note Luke Jordan MD - 05/20/2023 MRI BRAIN WITHOUT CONTRAST, MRI ANGIO BRAIN WITHOUT CONTRAST, MRI ANGIONECK WITHOUT CONTRAST TECHNIQUE: MRI BRAIN WITHOUT CONTRAST, MRI ANGIO BRAIN WITHOUT CONTRAST,MRI ANGIO NECK WITHOUT CONTRAST Multi-sequence, multi-planar MRI of the brain was performed withoutintravenous contrast. MRA of the head was performed utilizing cyqj-dh-wdydtl technique ([employer]). Maximal intensity projection 3D angiographic reformattedimages were performed. MRA of the neck was performed utilizing dvki-ea-strznm technique ([employer]). Maximal intensity projection 3D angiographic reformattedimages were performed. COMPARISON: None FINDINGS: Brain Parenchyma: There is minimal scattered T2/FLAIR hyperintensity inthe periventricular and deep white matter which is nonspecific and can beseen in the setting of chronic small vessel disease. No evidence of acuteinfarct, mass lesion, or hemorrhage. Ventricular System and Extra-Axial Spaces: Asymmetric prominence of theright retrocerebellar space, likely either an arachnoid cyst or asymmetricdevelopmentally large cisterna magna. No evidence of midline shift orhydrocephalus. Extracranial Structures: Arterial flow voids in the skull base arepresent. MRA HEAD: Anterior Circulation: Hypoplastic right A1 segment, anatomic variantNormal flow within the intracranial internal carotid arteries, anteriorcerebral arteries and the middle cerebral arteries. No severe stenosis,occlusion, aneurysm or arteriovenous malformation. Posterior Circulation: Intracranial left vertebral artery not visualized.Normal flow within the intracranial right vertebral artery, basilar arteryand posterior cerebral arteries. No severe stenosis, occlusion, aneurysmor arteriovenous malformation. MRA NECK: Aortic Arch and Origin of Major Cervical Vessels: Normal. There is aleft-sided, three-vessel aortic arch. The brachiocephalic artery and bilateral subclavian arteries are patent. Right Common Carotid Artery: Normal. No stenosis, occlusion or dissection. Right Internal Carotid Artery: Normal. No stenosis, occlusion ordissection. Left Common Carotid Artery: Normal. No stenosis, occlusion ordissection. Left Internal Carotid Artery: Normal. No stenosis, occlusion ordissection. External Carotid Arteries: Normal. No stenosis, occlusion or dissection. Right Vertebral Artery: Normal. No stenosis, occlusion or dissection. Left Vertebral Artery: Nondominant left vertebral artery, suboptimallyevaluated along its proximal segment due to artifact, and not wellvisualized just proximal to the dural penetration. Other: Multinodular thyroid gland, not well assessed on this examination.Cervical spine hardware CAROTID STENOSIS REFERENCE: -Distal internal carotid artery diameter as the denominator for stenosismeasurement: MILD = <50% stenosis. MODERATE = 50-69% stenosis. SEVERE = 70-89% stenosis. HAIRLINE/CRITICAL = 90-99% stenosis. OCCLUDED = 100% stenosis. IMPRESSION: Non-dominant left vertebral artery, not well visualized along itsintracranial portion or just proximal to the dural penetration, likelyrelated to technical factors and. However, given complaint of dizziness,consider CTA head/neck to more definitively confirm patency Otherwise, no cause for the reported symptoms identified by brain MRI,head MRA, or neck MRA Multinodular thyroid gland, not well assessed on this examination.Consider thyroid ultrasound, if clinically appropriate. This report has been forwarded to an automated communication system whichwill electronically notify appropriate providers of potentially importantfindings. us Tomy ANAND IMG MR HEAD/NECK Final Resu lt * MRA HEAD WITHOUT CONTRAST (05/19/2023 4:58 PM EDT) Anatomical Region Laterality Modality Head Magnetic Resonan ce 05/19/2023 5:33 PM EDT Impressions 05/20/2023 7:05 AM EDT Non-dominant left vertebral artery, not well visualized along its intracranial portion or just proximal to the dural penetration, likely related to technical factors and. However, given complaint of dizziness, consider CTA head/neck to more definitively confirm patency Otherwise, no cause for the reported symptoms identified by brain MRI, head MRA, or neck MRA Multinodular thyroid gland, not well assessed on this examination. Consider thyroid ultrasound, if clinically appropriate. This report has been forwarded to an automated communication system which will electronically notify appropriate providers of potentially important findings. Narrative 05/20/2023 7:05 AM EDT MRI BRAIN WITHOUT CONTRAST, MRI ANGIO BRAIN WITHOUT CONTRAST, MRI ANGIO NECK WITHOUT CONTRAST TECHNIQUE: MRI BRAIN WITHOUT CONTRAST, MRI ANGIO BRAIN WITHOUT CONTRAST, MRI ANGIO NECK WITHOUT CONTRAST Multi-sequence, multi-planar MRI of the brain was performed without intravenous contrast. MRA of the head was performed utilizing iqkq-yd-ojpkao technique (no gadolinium). Maximal intensity projection 3D angiographic reformatted images were performed. MRA of the neck was performed utilizing bodw-xr-ebdlsi technique (no gadolinium). Maximal intensity projection 3D angiographic reformatted images were performed. COMPARISON: None FINDINGS: Brain Parenchyma: There is minimal scattered T2/FLAIR hyperintensity in the periventricular and deep white matter which is nonspecific and can be seen in the setting of chronic small vessel disease. No evidence of acute infarct, mass lesion, or hemorrhage. Ventricular System and Extra-Axial Spaces: Asymmetric prominence of the right retrocerebellar space, likely either an arachnoid cyst or asymmetric developmentally large cisterna magna. No evidence of midline shift or hydrocephalus. Extracranial Structures: Arterial flow voids in the skull base are present. MRA HEAD: Anterior Circulation: Hypoplastic right A1 segment, anatomic variant Normal flow within the intracranial internal carotid arteries, anterior cerebral arteries and the middle cerebral arteries. No severe stenosis, occlusion, aneurysm or arteriovenous malformation. Posterior Circulation: Intracranial left vertebral artery not visualized. Normal flow within the intracranial right vertebral artery, basilar artery and posterior cerebral arteries. No severe stenosis, occlusion, aneurysm or arteriovenous malformation. MRA NECK: Aortic Arch and Origin of Major Cervical Vessels: Normal. There is a left-sided, three-vessel aortic arch. The brachiocephalic artery and bilateral subclavian arteries are patent. Right Common Carotid Artery: Normal. No stenosis, occlusion or dissection. Right Internal Carotid Artery: Normal. No stenosis, occlusion or dissection. Left Common Carotid Artery: Normal. No stenosis, occlusion or dissection. Left Internal Carotid Artery: Normal. No stenosis, occlusion or dissection. External Carotid Arteries: Normal. No stenosis, occlusion or dissection. Right Vertebral Artery: Normal. No stenosis, occlusion or dissection. Left Vertebral Artery: Nondominant left vertebral artery, suboptimally evaluated along its proximal segment due to artifact, and not well visualized just proximal to the dural penetration. Other: Multinodular thyroid gland, not well assessed on this examination. Cervical spine hardware CAROTID STENOSIS REFERENCE: -Distal internal carotid artery diameter as the denominator for stenosis measurement: MILD = <50% stenosis. MODERATE = 50-69% stenosis. SEVERE = 70-89% stenosis. HAIRLINE/CRITICAL = 90-99% stenosis. OCCLUDED = 100% stenosis. Procedure Note Luke Jordan MD - 05/20/2023 MRI BRAIN WITHOUT CONTRAST, MRI ANGIO BRAIN WITHOUT CONTRAST, MRI ANGIONECK WITHOUT CONTRAST TECHNIQUE: MRI BRAIN WITHOUT CONTRAST, MRI ANGIO BRAIN WITHOUT CONTRAST,MRI ANGIO NECK WITHOUT CONTRAST Multi-sequence, multi-planar MRI of the brain was performed withoutintravenous contrast. MRA of the head was performed utilizing zmwk-uv-npgnfz technique (nogad[employer]). Maximal intensity projection 3D angiographic reformattedimages were performed. MRA of the neck was performed utilizing yhwn-lc-lnjmnc technique (nogadolinium). Maximal intensity projection 3D angiographic reformattedimages were performed. COMPARISON: None FINDINGS: Brain Parenchyma: There is minimal scattered T2/FLAIR hyperintensity inthe periventricular and deep white matter which is nonspecific and can beseen in the setting of chronic small vessel disease. No evidence of acuteinfarct, mass lesion, or hemorrhage. Ventricular System and Extra-Axial Spaces: Asymmetric prominence of theright retrocerebellar space, likely either an arachnoid cyst or asymmetricdevelopmentally large cisterna magna. No evidence of midline shift orhydrocephalus. Extracranial Structures: Arterial flow voids in the skull base arepresent. MRA HEAD: Anterior Circulation: Hypoplastic right A1 segment, anatomic variantNormal flow within the intracranial internal carotid arteries, anteriorcerebral arteries and the middle cerebral arteries. No severe stenosis,occlusion, aneurysm or arteriovenous malformation. Posterior Circulation: Intracranial left vertebral artery not visualized.Normal flow within the intracranial right vertebral artery, basilar arteryand posterior cerebral arteries. No severe stenosis, occlusion, aneurysmor arteriovenous malformation. MRA NECK: Aortic Arch and Origin of Major Cervical Vessels: Normal. There is aleft-sided, three-vessel aortic arch. The brachiocephalic artery and bilateral subclavian arteries are patent. Right Common Carotid Artery: Normal. No stenosis, occlusion or dissection. Right Internal Carotid Artery: Normal. No stenosis, occlusion ordissection. Left Common Carotid Artery: Normal. No stenosis, occlusion ordissection. Left Internal Carotid Artery: Normal. No stenosis, occlusion ordissection. External Carotid Arteries: Normal. No stenosis, occlusion or dissection. Right Vertebral Artery: Normal. No stenosis, occlusion or dissection. Left Vertebral Artery: Nondominant left vertebral artery, suboptimallyevaluated along its proximal segment due to artifact, and not wellvisualized just proximal to the dural penetration. Other: Multinodular thyroid gland, not well assessed on this examination.Cervical spine hardware CAROTID STENOSIS REFERENCE: -Distal internal carotid artery diameter as the denominator for stenosismeasurement: MILD = <50% stenosis. MODERATE = 50-69% stenosis. SEVERE = 70-89% stenosis. HAIRLINE/CRITICAL = 90-99% stenosis. OCCLUDED = 100% stenosis. IMPRESSION: Non-dominant left vertebral artery, not well visualized along itsintracranial portion or just proximal to the dural penetration, likelyrelated to technical factors and. However, given complaint of dizziness,consider CTA head/neck to more definitively confirm patency Otherwise, no cause for the reported symptoms identified by brain MRI,head MRA, or neck MRA Multinodular thyroid gland, not well assessed on this examination.Consider thyroid ultrasound, if clinically appropriate. This report has been forwarded to an automated communication system whichwill electronically notify appropriate providers of potentially importantfindings. us Tomy ANAND IMG MR HEAD/NECK Final Resu lt * MRI BRAIN WITHOUT CONTRAST (05/19/2023 4:58 PM EDT) Anatomical Region Laterality Modality Head Magnetic Resonan ce 05/19/2023 5:33 PM EDT Impressions 05/20/2023 7:05 AM EDT Non-dominant left vertebral artery, not well visualized along its intracranial portion or just proximal to the dural penetration, likely related to technical factors and. However, given complaint of dizziness, consider CTA head/neck to more definitively confirm patency Otherwise, no cause for the reported symptoms identified by brain MRI, head MRA, or neck MRA Multinodular thyroid gland, not well assessed on this examination. Consider thyroid ultrasound, if clinically appropriate. This report has been forwarded to an automated communication system which will electronically notify appropriate providers of potentially important findings. Narrative 05/20/2023 7:05 AM EDT MRI BRAIN WITHOUT CONTRAST, MRI ANGIO BRAIN WITHOUT CONTRAST, MRI ANGIO NECK WITHOUT CONTRAST TECHNIQUE: MRI BRAIN WITHOUT CONTRAST, MRI ANGIO BRAIN WITHOUT CONTRAST, MRI ANGIO NECK WITHOUT CONTRAST Multi-sequence, multi-planar MRI of the brain was performed without intravenous contrast. MRA of the head was performed utilizing etzn-ma-hrohwf technique (no gadolinium). Maximal intensity projection 3D angiographic reformatted images were performed. MRA of the neck was performed utilizing vbsg-gi-zznste technique (no gadolinium). Maximal intensity projection 3D angiographic reformatted images were performed. COMPARISON: None FINDINGS: Brain Parenchyma: There is minimal scattered T2/FLAIR hyperintensity in the periventricular and deep white matter which is nonspecific and can be seen in the setting of chronic small vessel disease. No evidence of acute infarct, mass lesion, or hemorrhage. Ventricular System and Extra-Axial Spaces: Asymmetric prominence of the right retrocerebellar space, likely either an arachnoid cyst or asymmetric developmentally large cisterna magna. No evidence of midline shift or hydrocephalus. Extracranial Structures: Arterial flow voids in the skull base are present. MRA HEAD: Anterior Circulation: Hypoplastic right A1 segment, anatomic variant Normal flow within the intracranial internal carotid arteries, anterior cerebral arteries and the middle cerebral arteries. No severe stenosis, occlusion, aneurysm or arteriovenous malformation. Posterior Circulation: Intracranial left vertebral artery not visualized. Normal flow within the intracranial right vertebral artery, basilar artery and posterior cerebral arteries. No severe stenosis, occlusion, aneurysm or arteriovenous malformation. MRA NECK: Aortic Arch and Origin of Major Cervical Vessels: Normal. There is a left-sided, three-vessel aortic arch. The brachiocephalic artery and bilateral subclavian arteries are patent. Right Common Carotid Artery: Normal. No stenosis, occlusion or dissection. Right Internal Carotid Artery: Normal. No stenosis, occlusion or dissection. Left Common Carotid Artery: Normal. No stenosis, occlusion or dissection. Left Internal Carotid Artery: Normal. No stenosis, occlusion or dissection. External Carotid Arteries: Normal. No stenosis, occlusion or dissection. Right Vertebral Artery: Normal. No stenosis, occlusion or dissection. Left Vertebral Artery: Nondominant left vertebral artery, suboptimally evaluated along its proximal segment due to artifact, and not well visualized just proximal to the dural penetration. Other: Multinodular thyroid gland, not well assessed on this examination. Cervical spine hardware CAROTID STENOSIS REFERENCE: -Distal internal carotid artery diameter as the denominator for stenosis measurement: MILD = <50% stenosis. MODERATE = 50-69% stenosis. SEVERE = 70-89% stenosis. HAIRLINE/CRITICAL = 90-99% stenosis. OCCLUDED = 100% stenosis. Procedure Note Luke Jordan MD - 05/20/2023 MRI BRAIN WITHOUT CONTRAST, MRI ANGIO BRAIN WITHOUT CONTRAST, MRI ANGIONECK WITHOUT CONTRAST TECHNIQUE: MRI BRAIN WITHOUT CONTRAST, MRI ANGIO BRAIN WITHOUT CONTRAST,MRI ANGIO NECK WITHOUT CONTRAST Multi-sequence, multi-planar MRI of the brain was performed withoutintravenous contrast. MRA of the head was performed utilizing rans-zg-jmvpxw technique (nogadolinium). Maximal intensity projection 3D angiographic reformattedimages were performed. MRA of the neck was performed utilizing rkyo-jx-qeatqi technique (nogadolinium). Maximal intensity projection 3D angiographic reformattedimages were performed. COMPARISON: None FINDINGS: Brain Parenchyma: There is minimal scattered T2/FLAIR hyperintensity inthe periventricular and deep white matter which is nonspecific and can beseen in the setting of chronic small vessel disease. No evidence of acuteinfarct, mass lesion, or hemorrhage. Ventricular System and Extra-Axial Spaces: Asymmetric prominence of theright retrocerebellar space, likely either an arachnoid cyst or asymmetricdevelopmentally large cisterna magna. No evidence of midline shift orhydrocephalus. Extracranial Structures: Arterial flow voids in the skull base arepresent. MRA HEAD: Anterior Circulation: Hypoplastic right A1 segment, anatomic variantNormal flow within the intracranial internal carotid arteries, anteriorcerebral arteries and the middle cerebral arteries. No severe stenosis,occlusion, aneurysm or arteriovenous malformation. Posterior Circulation: Intracranial left vertebral artery not visualized.Normal flow within the intracranial right vertebral artery, basilar arteryand posterior cerebral arteries. No severe stenosis, occlusion, aneurysmor arteriovenous malformation. MRA NECK: Aortic Arch and Origin of Major Cervical Vessels: Normal. There is aleft-sided, three-vessel aortic arch. The brachiocephalic artery and bilateral subclavian arteries are patent. Right Common Carotid Artery: Normal. No stenosis, occlusion or dissection. Right Internal Carotid Artery: Normal. No stenosis, occlusion ordissection. Left Common Carotid Artery: Normal. No stenosis, occlusion ordissection. Left Internal Carotid Artery: Normal. No stenosis, occlusion ordissection. External Carotid Arteries: Normal. No stenosis, occlusion or dissection. Right Vertebral Artery: Normal. No stenosis, occlusion or dissection. Left Vertebral Artery: Nondominant left vertebral artery, suboptimallyevaluated along its proximal segment due to artifact, and not wellvisualized just proximal to the dural penetration. Other: Multinodular thyroid gland, not well assessed on this examination.Cervical spine hardware CAROTID STENOSIS REFERENCE: -Distal internal carotid artery diameter as the denominator for stenosismeasurement: MILD = <50% stenosis. MODERATE = 50-69% stenosis. SEVERE = 70-89% stenosis. HAIRLINE/CRITICAL = 90-99% stenosis. OCCLUDED = 100% stenosis. IMPRESSION: Non-dominant left vertebral artery, not well visualized along itsintracranial portion or just proximal to the dural penetration, likelyrelated to technical factors and. However, given complaint of dizziness,consider CTA head/neck to more definitively confirm patency Otherwise, no cause for the reported symptoms identified by brain MRI,head MRA, or neck MRA Multinodular thyroid gland, not well assessed on this examination.Consider thyroid ultrasound, if clinically appropriate. This report has been forwarded to an automated communication system whichwill electronically notify appropriate providers of potentially importantfindings. Tomy HAMPTON MR HEAD/NECK Final Resu lt documented in this encounter Visit Diagnoses Diagnosis Nonintractable headache, unspecified chronicity pattern, unspecified headache type- Primary Dizziness Dizziness and giddiness Nonintractable headache, unspecified chronicity pattern, unspecified headache type Dizziness Dizziness and giddiness documented in this encounter Additional Health Concerns Infection Onset Date Last Indicated Resolved Time CoV-Exposed Comment:Positive COVID-19 06/13/2024 06/13/2024 06/13/2024 4:1 9 PM EDT CoV-Risk Comment:Per Ambulatory Triage Form 06/13/2024 06/13/202406/13 4:19 PM EDT COVID-19 06/13/2024 06/13/2024 07/04/2024 1:21 AM EDT Assessment Noted Time PHQ-2 Depression Total Score: 0 10/17/20 3:39 PM EST documented as of this encounter Care Teams Digital Account Manager Relationship Specialty Start Date End Date Yoli Aragon MD [address] [place] [address], [address] [place] [address] [email or web address] PCP - General Internal Medicine 05/22/20 Johnie Loaiza MD [address] [place] [address] [address] [place] [address] [email or web address] Historical LMR Provider 08/12/17 documented as of this encounter Additional Source Comments The information contained in this document represents components of the legal health record. It is not the complete legal health record.[facility]
--- OUTSIDE RECORDS SUMMARY | 2025-07-25 16:15 | XMS_ITS | Encounter Summary ---
Author Organization [facility] Address [address] [facility] [address] [place] [address] Phone Care Team Providers Care Complex Case Manager Name Role Phone Johnie Loaiza MD Unavailable Yoli Aragon MD Primary Care Provider Reason for Visit * Reason Onset Date Comments Covid + 06/13/2024 Fever 06/13/2024 103.6 Encounter Details Date Type Department Care Team (Late st Contact Info) Description 06/13/2024 Nurse Triage [facility] [address] [place] [address] Dr [place] [address] Yoli Aragon MD [address] [place] [address], 2nd [place] [address] [email or web address] Covid +; Fever (103.6) Social History Tobacco Use Types Packs/Day Years [...] AM EDT documented as of this encounter Progress Notes * Yoli Aragon MD - 06/13/2024 4:31 PM EDT Rx sent. * Lina Portillo RN - 06/13/2024 4:17 PM EDT Reason for Disposition [1] COVID-19 diagnosed by positive lab test (e.g., PCR, rapid self-test kit) AND [2] mild symptoms (e.g., cough, fever, others) AND [3] no complications or SOB Protocols used: Coronavirus (COVID-19) Diagnosed or [id number] Nurse Triage Encounter Note Reason for Triage Nida Alvares contacted office for Other Fever 103.6 Call Disposition Home Care Disposition Comments: Patient/caregiver understands and will follow disposition: Yes Initial Symptom Screening and Assessment IA Symptom Onset Less than 24 hours Symptom Severity Moderate - interferes with normal activities Symptom Pattern Constant/continuous Aggravating factors or triggers Recent infection Home Treatments OTC Medications Did the home treatments work? Yes Location? Other Fever? Yes Temp Source Tympanic Reading? 100.9 Pain level 5 Medication Considerations No medication concerns Recent surgery? No Known allergy? No Recent travel? No Recent exposure to sick contact? Yes Comments Exposed 2 days ago Care Advice Patient/Caregiver understands and will follow care advice?: Yes, plans to follow advice Coronavirus (COVID-19) Diagnosed or [id number] Lina Portillo RN Mon Jun 13, 2024 04:18 PM Disposition and First Aid HOME CARE: * You should be able to treat this at home. Treating the Symptoms of COVID-19 REASSURANCE AND EDUCATION - POSITIVE COVID-19 LAB TEST AND MILD SYMPTOMS: * You had a recent lab test for COVID-19 and it came back positive. * A positive result on a PCR or rapid self-test kit is highly accurate for diagnosing COVID-19. It is highly likely that you have COVID-19. * From what you have told me, your symptoms are mild. That is reassuring. * Here's some care advice to help you and to help prevent others from getting sick. GENERAL CARE ADVICE FOR COVID-19 SYMPTOMS: * The symptoms are generally treated the same whether you have COVID-19, influenza or some other respiratory virus. * Cough: Use cough drops. * Feeling dehydrated: Drink extra liquids. If the air in your home is dry, use a humidifier. * Fever: For fever over 101 F (38.3 C), take acetaminophen every 4 to 6 hours (Adults 650 mg) OR ibuprofen every 6 to 8 hours (Adults 400 mg). Before taking any medicine, read all the instructions onthe package. Do not take aspirin unless your doctor has prescribed it for you. * Muscle aches, headache, and other pains: Often this comes and goes with the fever. Take acetaminophen every 4 to 6 hours (Adults 650 mg) OR ibuprofen every 6 to 8 hours (Adults 400 mg). Before taking any medicine, read all the instructions on the package. * Sore throat: Try throat lozenges, hard candy or warm chicken broth. CALL BACK IF: * Fever over 103 F (39.4 C) * Fever lasts over 3 days * Fever returns after being gone for 24 hours * Chest pain or difficulty breathing occurs * You become worse Patient will call back with additional questions or if symptoms change or worsen Lina Portillo RN Reason for Disposition and Assessment Forwarding to provider for Paxlovid Rx * Meagan Rae - 06/13/2024 12:39 PM EDT Nida LVM on triage line stating pt has tested positive for Covid and has a temp of 103.6. Nida stated that she gave him tylenol and is requesting paxlovid. Nida requested we call her back at [phone]. Please contact and advise. Central Support Reverberatory Furnace Operator (Please do not reply to this user; this inbox is not monitored.) Thank you. documented in this encounter Plan of Treatment Not on file documented as of this encounter Procedures Procedure Name Priority Date/Time Associated Diagnosis Comments SARS-COV-2 (COVID-19) AG BINAXNOW Routine 06/13/2024 4:19 PM EDT documented in this encounter Results * (ABNORMAL) SARS-CoV-2 (COVID-19) Antigen (BinaxNOW) (06/13/2024 4:19 PM EDT) Source Nasal swab SARS-CoV-2 (COVID-19) antigen POSITIVE - Internal QCs acceptable(A ) NEGATIVE - Internal QCs acceptable 06/13/2024 4:19 PM EDT Historical Provider POINT OF CARE TEST ORDERA BLES Final Result documented in this encounter Visit Diagnoses Not on filedocumented [...] documented as of this encounter Care Teams Complex Case Manager Relationship Specialty Start Date End Date Yoli Aragon MD [address] [place] [address], 2[address] [place] [address] [email or web address] PCP - General Internal Medicine 05/22/20 Johnie Loaiza MD [address] [place], [place] [address] [address] [email or web address] Historical LMR Provider 08/12/17 documented as of this encounter Additional Source Comments The information contained in this document represents components of the legal health record. It is not the complete legal health record.[facility]
--- OUTSIDE RECORDS SUMMARY | 2025-07-25 16:15 | XMS_ITS | Encounter Summary ---
Author Organization [facility] Address [address] [facility] [address] [place] [address] Phone Care Team Providers Care Recruitment Officer Name Role Phone Johnie Loaiza MD Unavailable [phone] Yoli Aragon MD Primary Care Provider [phone] Encounter Details Date Type Department Care Team (Late st Contact Info) Description 05/04/2023 Procedure Pass [facility], [address] [place] [address] Social History Tobacco Use Types Packs/Day Years [...] documented as of this encounter Care Teams Recruitment Officer Relationship Specialty Start Date End Date Yoli Aragon MD [address] [place] [address], 2[address] [place] [address] [email or web address] PCP - General Internal Medicine 05/22/20 Johnie Loaiza MD [address] [place] [address] [address] [place] [address] [email or web address] Historical LMR Provider 08/12/17 documented as of this encounter Additional Source Comments The information contained in this document represents components of the legal health record. It is not the complete legal health record.[facility]
--- OUTSIDE RECORDS SUMMARY | 2025-07-25 16:15 | XMS_ITS | Encounter Summary ---
Author Organization [facility] Address [address] [facility] [address] [place] [address] Phone Care Team Providers Care Paster Operator Name Role Phone Johnie Loaiza MD Unavailable [phone] oYli Aragon MD Primary Care Provider [phone] Reason for Referral * - Closed Specialty Diagnoses / Procedures Referred By Carlo marc Referred To Contact Diagnoses Palpitations Procedures MCT (Mobile Cardiac Telemetry) Kathia Alcantar MD Phone: tel: fax: mailto:[email or web address] Referral ID Status Reason Start Date Expiration Date Visits Re quested Visits Authorized [id number] Closed 12/03/2021 12/03/2022 1 1 Encounter Details Date Type Department Care Team (Late st Contact Info) Description 12/03/2021 Ancillary Orders [facility] [address] [facility] [address], [address] [place] [address] Kathia Alcantar MD [address] [facility] [address] [place] [address] [email or web address] Palpitations Social History Tobacco Use Types Packs/Day Years Used Date Smoking Tobacco: Never Smokeless Tobacco: Never Sex and Gender Information Value Date Recorded Sex Assigned at Male 05/17/2018 11:34 AM EDT Legal Sex Male 10:05 PM EDT Gender Identity Male 05/17/2018 11:34 AM EDT Sexual Orientation Straight 05/17/2018 11 :34 AM EDT documented as of this encounter Plan of Treatment Scheduled Orders Name Type Priority Associated Diagnoses Orde r Schedule MCT (Mobile Cardiac Telemetry) Cardiac Monitors Routine Palpitations Expected: 12/07/2021, Expires: 05/06/2022 documented as of this encounter Visit Diagnoses Diagnosis Palpitations documented in this encounter Additional Health Concerns Infection Onset Date Last Indicated Resolved Time CoV-Exposed Comment:Positive COVID-19 06/13/2024 06/13/2024 06/13/2024 4:1 9 PM EDT CoV-Risk Comment:Per Ambulatory Triage Form 06/13/2024 06/13/202406/13 4:19 PM EDT COVID-19 06/13/2024 06/13/2024 07/04/2024 1:21 AM EDT Assessment Noted Time PHQ-2 Depression Total Score: 0 10/17/20 19 3:39 PM EST documented as of this encounter Care Teams Paster Operator Relationship Specialty Start Date End Date Yoli Aragon MD [address] [place] [address] [email or web address] PCP - General Internal Medicine 05/22/20 Johnie Loaiza MD [address] [place] [address] [email or web address] Historical LMR Provider 08/12/17 documented as of this encounter Additional Source Comments The information contained in this document represents components of the legal health record. It is not the complete legal health record.[facility]
--- OUTSIDE RECORDS SUMMARY | 2025-07-25 16:15 | XMS_ITS | Encounter Summary ---
Author Organization [facility] Address [address] [place] [address] Phone Care Team Providers Care Mandolin Repair Person Name Role Phone Johnie Loaiza MD Unavailable [phone] Yoli Aragon MD Primary Care Provider [phone] Encounter Details Date Type Department Care Team (Late st Contact Info) Description 05/04/2023 Procedure Pass [facility], [address] [place] [address] Social History Tobacco Use Types Packs/Day Years [...] documented as of this encounter Care Teams Mandolin Repair Person Relationship Specialty Start Date End Date Yoli Aragon MD [address] [place] [address], [address] [place] [address] [email or web address] PCP - General Internal Medicine 05/22/20 Johnie Loaiza MD [address] [place] [address] [address] [place] [address] [email or web address] Historical LMR Provider 08/12/17 documented as of this encounter Additional Source Comments The information contained in this document represents components of the legal health record. It is not the complete legal health record.[facility]
== END 2025-07-25 15:54 | disposition home or self-care (01) ==
LOC: HO.HUSH 14:57
PROVIDERS: PCP Internal Medicine; Visit Provider Urology
DX: N50.89 Other specified disorders of the male genital organs (principal)
CPT/HCPCS: 99214

== ENCOUNTER → 2025-07-25 14:56 | Outpatient (BNVA) | payer MEDICARE, SELFPAY | PROVIDERS: PCP Internal Medicine; Visit Provider Urology | DX: N45.1 Epididymitis (principal); N50.89 Other specified disorders of the male genital organs | CPT/HCPCS: 99212 ==